=== PATIENT | female | born 1965 | race Hispanic/Latino ===

== ENCOUNTER 2019-01-04 15:04 | Outpatient (CLI) | payer MEDICARE, MEDICAID ==
--- NOTE | 2019-01-04 15:19 | RAD ---
Exam: Chest 2 views HISTORY: Gastroesophageal reflux disease COMPARISON: None FINDINGS: Cardiac: Normal cardiac silhouette Aorta: Atherosclerosis of the aortic knob Pulmonary vessels: Normal Pleural spaces: No pleural effusion LUNGS: Hyperinflation with what is presumed to be chronic changes. No masses or dilatation. Pneumothorax: None Osseous: No acute osseous abnormalities IMPRESSION: 1. Atherosclerosis 2. Hyperinflation with what are presumed be chronic interstitial changes
== END 2019-01-04 15:05 | disposition home or self-care (01) ==
LOC: RAD 15:04
PROVIDERS: ATTEND Thoracic Surgery (Cardiothoracic Vascular Surgery)
DX: K21.9 Gastro-esophageal reflux disease without esophagitis (principal); J84.10 Pulmonary fibrosis, unspecified; I70.90 Unspecified atherosclerosis; R91.8 Other nonspecific abnormal finding of lung field
CPT/HCPCS: 71046

== ENCOUNTER 2020-06-15 11:00 | Outpatient (CLI) | payer MEDICARE, MEDICAID ==
--- NOTE | 2020-06-15 14:27 | CT ---
EXAM: LOW DOSE SCREENING LUNG CT: 06/15/20 HISTORY: Patient quit smoking for the past four years. Smoked a pack a day for 10-15 years. Nicotine dependenc e. COMPARISON: 10/17/16 FINDINGS: Lung RADS: Category 1, negative exam. No evidence of a suspicious mass or nodule. Lung RADS category S: None. There are no significant incidental findings. Pulmonary incidentals: Stable emphysematous changes throughout the lung parenchyma without a predomin antly peripheral distribution. There does appear to be a suture chain due to remote surgery involving the right upper lobe. Additional calcified suture material is suspected in the right lower lobe. Other incidentals: Minimal arthrosclerosis of the aorta. No lytic or blastic lesions in the osseous s tructures. IMPRESSION: 1. Lung RADS category 1. Negative. No evidence of suspicious masses or nodules. 2. Lung RADS category S: None. No significant incidentals. 3. Recommendation: Follow-up imaging in one year. POS: [facility]
== END 2020-06-15 11:01 | disposition home or self-care (01) ==
LOC: BICCT 11:00
PROVIDERS: ATTEND Internal Medicine
DX: Z12.2 Encounter for screening for malignant neoplasm of respiratory organs (principal); Z87.891 Personal history of nicotine dependence
CPT/HCPCS: 71271

== ENCOUNTER 2021-07-11 13:38 | Outpatient (CLI) | payer MEDICARE, MEDICAID | END 2021-07-11 13:39 | disposition home or self-care (01) | LOC: BICMAMMO 13:38 | PROVIDERS: ATTEND Internal Medicine | DX: Z12.31 Encounter for screening mammogram for malignant neoplasm of breast (principal); Z13.820 Encounter for screening for osteoporosis; Z78.0 Asymptomatic menopausal state; Z80.3 Family history of malignant neoplasm of breast; Z91.89 Other specified personal risk factors, not elsewhere classified | CPT/HCPCS: 77063; 77067; 77080 ==

== ENCOUNTER 2021-09-23 09:42 | Outpatient (CLI) | payer MEDICARE, MEDICAID | END 2021-09-23 09:43 | disposition home or self-care (01) | LOC: BICCT 09:42 | PROVIDERS: ATTEND Internal Medicine | DX: Z12.2 Encounter for screening for malignant neoplasm of respiratory organs (principal); Z87.891 Personal history of nicotine dependence | CPT/HCPCS: 71271 ==